=== PATIENT | female | born 1995 | race Caucasian/White ===

== ENCOUNTER 2017-03-02 16:42 | Emergency (ER) | payer BC ==
[~2017-03-02] VITALS: Ht 157.5 cm; Wt 91.0 kg
[2017-03-02 16:50] VITALS: Ht 157.5 cm; Wt 91.0 kg
--- NOTE | 2017-03-02 19:23 | RADRPT ---
PROCEDURE: US OB. CLINICAL INDICATION: Pelvic pain. TECHNIQUE: Multiple sonographic images of the uterus were obtained. The images were revi ewed on a PACS workstation. COMPARISON: No prior studies are available for comparison. FINDINGS: There is a single live intrauterine gestation. heart rate is 154 beats per minute. Measurements were made in order to determine age. The results are as follows: BPD = 5.70 cm. HC = 21.05 cm. AC = 18.19 cm. FL = 4.23 cm. Estimated weight is 586 +/- 87 grams. Maximum vertical pocket of amniotic fluid is 6.2 cm. Menstrual age by ultrasound dates is 23 weeks 3 days. The estimated date of delivery is 06/26/2017. Position is cephalic and placenta is anterior grade 1. There is no evidence for an abruption or plac enta previa. IMPRESSION: 1. Single live intrauterine gestation of 23 weeks 3 days menstrual age by ultrasound dates. 2. The estimated date of delivery is 06/26/2017. RPTAT: QQ .Grant Sims MD, Date Time Electronically viewed and signed by .Grant Sims MD, on 03/02/2017 19:22 .R/
--- NOTE | 2017-03-02 19:45 | ERD ---
ER Documentation Chief Complaint Date/Time DATE: 03/02/17 TIME: 19:44 Chief Complaint needs test, LMP a year ago HPI This 21-year-old female presents requesting a test. She had a baby approximately 1 year ago and is concerned that she has not had a menstrual period. She is not breast-feeding and is not taking any control. She feels as if her abdomen is increasing in size although she frequently gains and loses weight so she is uncertain. ROS All systems reviewed and are negative except as per history of present illness. Medications Home Meds No Active Prescriptions or Reported Meds Allergies Allergies: Coded Allergies: No Known Allergy (Unverified , 12/09/15) PMhx/Soc History of Surgery: No Anesthesia Reaction: No Hx Neurological Disorder: No Hx Respiratory Disorders: No Hx Cardiac Disorders: No Hx Psychiatric Problems: No Hx Miscellaneous Medical Probl: Yes (hypothyroid) Hx Alcohol Use: No Hx Substance Use: No Hx Tobacco Use: No Smoking Status: Never smoker Physical Exam Vitals Vital Signs Date Time Temp Pulse Resp B/P Pulse Ox O2 Delivery O2 Flow Rate FiO2 03/02/17 16:50 98.3 100 18 116/79 98 Physical Exam Const: [], [id number]-yon-[id number]. Head: Atraumatic Eyes: Normal Conjunctiva ENT: Normal External Ears, Nose and Mouth. Neck: Full range of motion..~ No meningismus. Resp: Clear to auscultation bilaterally Cardio: Regular rate and rhythm, no murmurs Abd: Soft, non tender, nontender distention of the lower abdomen. No rebound. No tenderness at McBurney's point no Avendano sign. Normal bowel sounds Skin: No petechiae or rashes Back: No midline or flank tenderness Ext: No cyanosis, or edema Neur: Awake and alert Psych: Normal Mood and Affect Procedures/MDM HCG is positive. Ultrasound shows single live intrauterine ingestion of 23 weeks 3 days. It is with signs of second trimester without current evidence of complications such as ectopic , appendicitis, PID, bleeding. She will be discharged home with instructions to initiate vitamins OB follow-up. She is return otherwise for new or worsening symptoms. The patient was stable with no new complaints during the ER course. Clinically, there is no current evidence to suggest meningitis, sepsis, acute abdomen, pneumonia, acute coronary syndrome, pulmonary embolism, or any other emergent condition appearing to require further evaluation or hospitalization. The patient should certainly return for any new or worsening symptoms per the aftercare instructions. They should otherwise follow-up with her primary care doctor for reevaluation this week. Departure Diagnosis: Primary Impression: Intrauterine Condition: Stable Patient Instructions: , New Dx Referrals: [facility] [id number] [facility] [address] [place] [address] OFFICE FAX , [facility] [address] [place] [address] [facility] [address] [place] [address] [address] [place], [facility] [address] [facility], [place] [address] [address] [facility] [address] [place] [address] [facility] [address] [place] [address] [facility] [id number] - SANDRA [place]EVY [address] [facility] [facility] [address] [address] [place], [place] [address] [facility]. [address], [place] [address] [address] [facility] [address] [place], [place] [id number] Additional Instructions: Ultrasound shows 23 week without complications. Follow-up with OB for further evaluation treatment. Recheck otherwise for new symptoms. Start vitamins. JONATHAN CARTAGENA MD Mar 02, 2017 19:45
[2017-03-02 19:53] VITALS: BP 108/63; PULSE 85; RESP 16; TEMP 98.4
== END 2017-03-02 19:54 | disposition home or self-care (01) ==
LOC: FTE 16:42
DX: O26.892 Other specified pregnancy related conditions, second trimester (principal); R10.2 Pelvic and perineal pain; Z3A.23 23 weeks gestation of pregnancy
CPT/HCPCS: 76805

== ENCOUNTER 2017-06-19 09:52 | Inpatient (IN) | END 2017-06-22 14:48 | disposition home or self-care (01) | DRG 766 ==